=== PATIENT | male | born 1935 | race Caucasian/White ===

== ENCOUNTER 2016-07-18 10:32 | Emergency (ER) | payer MEDICARE ==
[2016-07-18 12:07] LABS: Basophils % (Auto) 0.5 % (0.0-1.8); Eosinophils % (Auto) 0.5 % (0.0-4.3); Hemoglobin 16.1 gm/dl (11.8-15.2); Mean Corpuscular HGB Conc 32 % (32-34); Mean Corpuscular Hemoglobin 27 pg (28-32); Mean Corpuscular Volume 82 fl (84-94); Platelet Count 200 K/mm3 (140-440); Red Blood Count 6.06 M/mm3 (3.65-5.03); Red Cell Distribution Width 14.4 % (13.2-15.2); White Blood Count 8.9 K/mm3 (4.5-11.0)
[2016-07-18 12:21] LABS: Anion Gap 15 mmol/L; Blood Urea Nitrogen 16 mg/dL (9-20); Carbon Dioxide 28 mmol/L (22-30); Chloride 100.3 mmol/L (98-107); Glucose 114 mg/dL (75-100); Potassium 3.5 mmol/L (3.6-5.0); Sodium 140 mmol/L (137-145)
[2016-07-18] MEDS ORDERED: APRESOLINE IV ONE (13:01)
--- NOTE | 2016-07-18 13:02 | Emergency Department Report ---
ED General Adult HPI - General Chief complaint: High BP Stated complaint: BP HIGH Time Seen by Provider: 07/18/16 12:43 Source: patient Mode of arrival: Ambulatory Limitations: Language Barrier - History of Present Illness Initial comments: mehnaz williamson [id number] This is an 81-year-old male. He is previously unknown to me. May have a history of hypertension. Patient is brought to the hospital with family for elevated blood pressure and dizziness. Apparently the patient's woke up this morning feeling dizzy. He is having difficulty further describing the nature of the dizziness. He did not pass out. He did not loose consciousness. He does not have ataxia. He does not have chest pain. He does not have shortness of breath. He does not have headache. He does not have neck pain. Patient does have a history of high blood pressure, but he is unable to list his antihypertensive medications. Patient indicates no exacerbating or relieving factors dizziness. Further indicates that dizziness has resolved. -: Gradual Consistency: now resolved Improves with: none Worsens with: none Associated Symptoms: denies: confusion, chest pain, cough, diaphoresis, fever/ chills, loss of appetite, malaise, nausea/vomiting, rash, shortness of breath, syncope, weakness - Related Data Home Medications Medication Instructions Recorded Confirmed Last Taken Unobtainable 07/18/16 07/18/16 Unknown Allergies Allergy/AdvReac Type Severity Reaction Status Date / Time No Known Allergies Allergy Unverified 07/18/16 11:31 ED Review of Systems ROS: Stated complaint: BP HIGH Other details as noted in HPI Constitutional: see HPI. denies: fever Eyes: denies: vision change ENT: denies: throat pain, epistaxis Respiratory: denies: SOB with exertion Cardiovascular: denies: chest pain, syncope Gastrointestinal: denies: vomiting Genitourinary: denies: dysuria Musculoskeletal: denies: back pain Skin: denies: lesions Neurological: denies: vertigo Psychiatric: as per HPI ED Past Medical Hx - Medications Home Medications: Home Medications Medication Instructions Recorded Confirmed Last Taken Type Unobtainable 07/18/16 07/18/16 Unknown History ED Physical Exam - General Limitations: Language Barrier General appearance: alert, in no apparent distress - Head Head exam: Present: atraumatic, normocephalic - Eye Eye exam: Present: normal appearance, PERRL, EOMI. Absent: nystagmus - ENT ENT exam: Present: normal exam, normal orophraynx, mucous membranes moist, normal external ear exam - Neck Neck exam: Present: normal inspection, full ROM. Absent: tenderness, meningismus - Respiratory Respiratory exam: Present: normal lung sounds bilaterally. Absent: respiratory distress, wheezes, rales, rhonchi, stridor, decreased breath sounds - Cardiovascular Cardiovascular Exam: Present: regular rate, normal rhythm, normal heart sounds. Absent: bradycardia, tachycardia, irregular rhythm, systolic murmur, diastolic murmur, rubs, gallop - GI/Abdominal GI/Abdominal exam: Present: soft, normal bowel sounds. Absent: distended, tenderness, guarding, rebound, rigid, pulsatile mass - Rectal Rectal exam: Present: deferred - Extremities Exam Extremities exam: Present: normal inspection, full ROM, normal capillary refill. Absent: tenderness, pedal edema, joint swelling, calf tenderness - Back Exam Back exam: Present: normal inspection, full ROM. Absent: tenderness, CVA tenderness (R), CVA tenderness (L), muscle spasm, paraspinal tenderness, vertebral tenderness - Neurological Exam Neurological exam: Present: alert, normal gait, other (Extraocular movements intact. Tongue midline. No facial droop. Facial sensation intact to light touch in the V1, V2, V3 distribution bilaterally. 5 and 5 strength in 4 extremities.. Sensation is intact to light touch in 4 extremities.). Absent: motor sensory deficit - Psychiatric Psychiatric exam: Present: normal affect, normal mood - Skin Skin exam: Present: warm, dry, intact, normal color. Absent: rash ED Course Vital Signs 07/18/16 07/18/16 07/18/16 11:31 12:22 12:30 Temperature 97.8 F Pulse Rate 79 72 Respiratory 18 10 L Rate Blood Pressure 199/128 187/93 O2 Sat by Pulse 95 97 96 Oximetry 07/18/16 07/18/16 07/18/16 13:01 13:20 14:13 Temperature Pulse Rate Respiratory Rate Blood Pressure 187/93 187/93 187/93 O2 Sat by Pulse 98 98 Oximetry 07/18/16 07/18/16 07/18/16 14:31 15:00 15:30 Temperature Pulse Rate 87 84 90 Respiratory 12 9 L 10 L Rate Blood Pressure 178/85 168/91 172/101 O2 Sat by Pulse 98 97 97 Oximetry - Reevaluation(s) Reevaluation #1: 07/18/16 14:16 Differential diagnosis: Hypertensive urgency/emergency, arrhythmia, structural cardiac disease, transient ischemic attack, posterior circulation stroke, transient ischemic attack Assessment and plan: 81-year-old male with nonspecific dizziness and markedly elevated blood pressure. Walks with a steady gait, no chest pain or headache. Has an NIH score of 0. No indication for TPA at this time. Given vague nature of symptoms, abnormal vital signs, advanced age, vascular risk factors, patient to be admitted to the hospital for further evaluation and management, blood pressure control. Case is discussed with the Hospital physician, Dr. Field, who accepts the patient to his service. Reevaluation #2: 07/18/16 15:43 surinamese per diem interpreter [id number] Patient is going to sign out AGAINST MEDICAL ADVICE. He is alert and oriented 3, exhibits decision-making capacity, and is free from distracting injury. The patient is able to articulate the risks of leaving, including , disability , paralysis, loss of quality of life. He is encouraged to follow up with primary care doctor soon as possible, which return to the ER right away if and when he changes his mind. Patient is unable to read French, and this facility does not surinamese discharge AGAINST MEDICAL ADVICE paperwork. However, the ama conversation is performed using a formal surinamese tank farm gauger, and is witnessed by RN Xin Nunez The patient was instructed to return to the ER right away if and when he changes his mind, and was counseled to follow up with the primary care doctor if he does not. hospital physician informed 07/19/16 14:54 ED Medical Decision Making - Lab Data Result diagrams: 07/18/16 11:53 07/18/16 11:53 Vital Signs 07/18/16 07/18/16 07/18/16 11:31 12:22 12:30 Temperature 97.8 F Pulse Rate 79 72 Respiratory 18 10 L Rate Blood Pressure 199/128 187/93 O2 Sat by Pulse 95 97 96 Oximetry 07/18/16 13:20 Temperature Pulse Rate Respiratory Rate Blood Pressure 187/93 O2 Sat by Pulse Oximetry Lab Results 07/18/16 07/18/16 07/18/16 Range/Units 11:53 11:53 13:04 WBC 8.9 (4.5-11.0) K/mm3 RBC 6.06 H (3.65-5.03) M/mm3 Hgb 16.1 H (11.8-15.2) gm/dl Hct 50.0 H (35.5-45.6) % MCV 82 L (84-94) fl MCH 27 L (28-32) pg MCHC 32 (32-34) % RDW 14.4 (13.2-15.2) % Plt Count 200 (140-440) K/mm3 Lymph % (Auto) 15.8 (13.4-35.0) % [place] % (Auto) 8.2 H (0.0-7.3) % Eos % (Auto) 0.5 (0.0-4.3) % Baso % (Auto) 0.5 (0.0-1.8) % Lymph # 1.4 (1.2-5.4) K/mm3 [place] # 0.7 (0.0-0.8) K/mm3 Eos # 0.0 (0.0-0.4) K/mm3 Baso # 0.0 (0.0-0.1) K/mm3 Seg Neutrophils % 75.0 H (40.0-70.0) % Seg Neutrophils # 6.7 (1.8-7.7) K/mm3 PT 12.6 (12.2-14.9) Sec. INR 0.95 (0.87-1.13) Sodium 140 (137-145) mmol/L Potassium 3.5 L (3.6-5.0) mmol/L Chloride 100.3 (98-107) mmol/L Carbon Dioxide 28 (22-30) mmol/L Anion Gap 15 mmol/L BUN 16 (9-20) mg/dL Creatinine 1.0 (0.8-1.5) mg/dL Estimated GFR > 60 ml/min BUN/Creatinine Ratio 16.00 % Glucose 114 H (75-100) mg/dL Calcium 9.0 (8.4-10.2) mg/dL Troponin T (0.00-0.029) ng/mL 07/18/16 Range/Units 13:04 WBC (4.5-11.0) K/mm3 RBC (3.65-5.03) M/mm3 Hgb (11.8-15.2) gm/dl Hct (35.5-45.6) % MCV (84-94) fl MCH (28-32) pg MCHC (32-34) % RDW (13.2-15.2) % Plt Count (140-440) K/mm3 Lymph % (Auto) (13.4-35.0) % [place] % (Auto) (0.0-7.3) % Eos % (Auto) (0.0-4.3) % Baso % (Auto) (0.0-1.8) % Lymph # (1.2-5.4) K/mm3 [place] # (0.0-0.8) K/mm3 Eos # (0.0-0.4) K/mm3 Baso # (0.0-0.1) K/mm3 Seg Neutrophils % (40.0-70.0) % Seg Neutrophils # (1.8-7.7) K/mm3 PT (12.2-14.9) Sec. INR (0.87-1.13) Sodium (137-145) mmol/L Potassium (3.6-5.0) mmol/L Chloride (98-107) mmol/L Carbon Dioxide (22-30) mmol/L Anion Gap mmol/L BUN (9-20) mg/dL Creatinine (0.8-1.5) mg/dL Estimated GFR ml/min BUN/Creatinine Ratio % Glucose (75-100) mg/dL Calcium (8.4-10.2) mg/dL Troponin T < 0.010 (0.00-0.029) ng/mL - EKG Data When compared to previous EKG there are: previous EKG unavailable 07/18/16 14:18 normal sinus, 77 beats per minute, left axis deviation, nonspecific T-wave abnormality, QTC 475 ms, not consistent with STEMI, there is no prior for comparison. - Radiology Data Radiology results: pending, report reviewed, image reviewed CT scan of the brain is negative for acute disease. X-ray of the chest is negative for acute disease. Critical care attestation.: If time is entered above; I have spent that time in minutes in the direct care of this critically ill patient, excluding procedure time. ED Disposition Clinical Impression: Hypertensive urgency, Dizziness Disposition: LEFT AGAINST MEDICAL ADVICE Is pt being admited?: No Does the pt Need Aspirin: No Condition: Undetermined Instructions: Hypertension (ED) Additional Instructions: As we discussed, you have left the hospital/emergency room AGAINST MEDICAL ADVICE. By leaving, you risked , disability, paralysis, permanent loss of quality of life. The ER is open 24 hours a day, 7 days a week. It never closes. Please return to the emergency room right away if and when you change your mind. If you decide not to return to the emergency room, please follow-up with the listed physician referrals as soon as possible. please note that blood pressure was elevated. Long-term complications of elevated blood pressure include stroke, heart attack, disability, , paralysis, permanent loss of quality of life. Nh chng ti tho rajeev, bn ri bnh jeevan / phng cp cu I Y TNG Y T. Bng cch li, bn mo him t devon, tn tt, t lit, mt vnh jeevan cht lng vitaliy sng. ER m ca 24 gi harley ngy, 7 ngy mt kael. N khng chuyita gi ng li. Vui lng tr li phng cp cu ngay nu bn thay i nh. Nu bn quyt nh khng jayson tr li phng cp cu, vui lng endy di cc gii thiu ca bc s c lit k cng sm cng tt. Charity bravo rng huyt p tng ln. Cc bin chng lawrence di ca huyt p galindo chuyita gm t qu stroke, au hira, tn tt, t devon, t lit, mt cht lng vitaliy sng vnh jeevan. Referrals: PRIMARY MD MARISOL [Primary Care Provider] - 3-5 Days ZULMA ZAMORA MD [Staff Physician] - 3-5 Days
--- NOTE | 2016-07-18 13:22 | XRay Report ---
PORTABLE CHEST INDICATION: Hypertension, dizziness. Evaluate for pneumonia. COMPARISON: None similar. FINDINGS: Portable, frontal chest radiograph demonstrates slight limited inspiration and exaggerated cardiomediastinal silhouette. Lungs grossly clear. No pleural effusions or CHF. EKG leads. Thoracic spondylosis. CONCLUSION: No acute disease. Thank you for the opportunity to participate in this patient's care.
[2016-07-18 13:36] LABS: INR 0.95 (0.87-1.13)
--- NOTE | 2016-07-18 13:44 | Cat Scan Report ---
CT scan of head without contrast: History: Hypertension dizziness. Findings: Ventricles are midline in location. Periventricular area of low attenuation. Moderate volume loss. No evidence of acute ischemia, hemorrhage or mass. No extra-axial fluid collection. Normal brainstem and cerebellum. Normal sinuses and master air cells. Impression: No acute intracranial abnormality. Cortical atrophy and small vessel ischemic changes.
[2016-07-18] MEDS ORDERED: BABY ASPIRIN PO ONE (14:19)
[2016-07-18 16:20] VITALS: BP 172/101
== END 2016-07-18 16:10 | disposition left against medical advice (07) ==
LOC: ED 10:32
DX: I10 Essential (primary) hypertension (principal)
CPT/HCPCS: 36415; 70450; 71010; 80048; 83735; 84484; 85025; 85610; 93005; 93010; 96374; 99284; J0360